=== PATIENT | male | born 1990 | race Caucasian/White ===

== ENCOUNTER 2016-05-03 13:52 | Emergency (ER) | payer OTHER ==
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
--- NOTE | 2016-05-03 17:57 | ED MED RECONCILIATION SUMMARY ---
Patient: ARNULFO HSU RAZ DAY Medication Reconciliation Report [facility] VisitID: [id number] [address] [place] [address] 25y, M Registration Date/Time: 05/03/2016 Weight: 87.4 kg Height/Length: 66 in. BMI: 31.1 ALLERGIES: Ambien, Erythromycin The patient's Home Medications are listed below: THE FOLLOWING MEDICATIONS NEED TO BE RECONCILED: Ibuprofen Oral The source(s) of the original Home Medication information: patient The following Medications were given to the patient in the Emergency Department: None. The following Medications were prescribed to the patient: Take OTC medications according to label instructions. Available over the counter. -- Jaylene Guido, P.A.-C Acetaminophen (available over the counter): take according to label instructions. -- Jaylene Guido, P.A.-C Motrin (available over the counter): take according to label instructions. -- Jaylene Guido, P.A.-C
--- NOTE | 2016-05-03 17:57 | ED MAR SUMMARY ---
..... Medication Administration Record [facility] [address], [place] [id number] Patient: ARNULFO HSU Visit ID: [id number] 25y, M Weight: 87.4 kg Height/Length: 66 in BMI: 31.1 ALLERGIES: Ambien, Erythromycin
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
--- NOTE | 2016-05-03 17:57 | ED MAR SUMMARY ---
..... Medication Administration Record [facility] [address] [place], [place] [id number] Patient: ARNULFO HSU Visit ID: [id number] 25y, M Weight: 87.4 kg Height/Length: 66 in BMI: 31.1 ALLERGIES: Ambien, Erythromycin
--- NOTE | 2016-05-03 17:57 | ED MED RECONCILIATION SUMMARY ---
Patient: ARNULFO HSU RAZ DAY Medication Reconciliation Report [facility] VisitID: [id number] [address] [place] [address] 25y, M Registration Date/Time: 05/03/2016 Weight: 87.4 kg Height/Length: 66 in. BMI: 31.1 ALLERGIES: Ambien, Erythromycin The patient's Home Medications are listed below: THE FOLLOWING MEDICATIONS NEED TO BE RECONCILED: Ibuprofen Oral The source(s) of the original Home Medication information: patient The following Medications were given to the patient in the Emergency Department: None. The following Medications were prescribed to the patient: Take OTC medications according to label instructions. Available over the counter. -- Jaylene Guido, P.A.-C Acetaminophen (available over the counter): take according to label instructions. -- Jaylene Guido, P.A.-C Motrin (available over the counter): take according to label instructions. -- Jaylene Guido, P.A.-C
== END 2016-05-03 14:33 | disposition home or self-care (01) ==
LOC: ED SRH 13:52
DX: S06.0X1A Concussion with loss of consciousness of 30 minutes or less, initial encounter (principal); S30.1XXA Contusion of abdominal wall, initial encounter; S50.01XA Contusion of right elbow, initial encounter; Y04.0XXA Assault by unarmed brawl or fight, initial encounter; Y93.9 Activity, unspecified; Y92.009 Unspecified place in unspecified non-institutional (private) residence as the place of occurrence of the external cause; Y99.9 Unspecified external cause status